=== PATIENT | male | born 1960 | race Caucasian/White ===

== ENCOUNTER → 2021-09-24 | Outpatient (CLI) | payer OTHER | END | disposition home or self-care (01) | LOC: LABWHC1 10:31 | PROVIDERS: ATTEND Urology | DX: R97.20 Elevated prostate specific antigen [PSA] (principal) | CPT/HCPCS: 36415; G0103 ==

== ENCOUNTER → 2023-07-12 | Outpatient (CLI) | payer OTHER ==
[2023-07-12 16:01] LABS: Basophils # (A) 0.05 X 10*3/uL (0.00-0.10); Basophils % (A) 0.7 %; Eosinophils # (A) 0.23 X 10*3/uL (0.04-0.35); Eosinophils % (A) 3.3 %; HCT 47.1 % (39.6-50.0); HGB 16.1 g/dL (13.0-17.0); Lymphocytes % (A) 31.5 %; MCH 30.5 pg (27.0-32.0); MCHC 34.2 g/dL (32.0-37.0); MCV 89.2 FL (80.0-97.0); Mean Platelet Volume 10.1 FL (9.5-12.2); Monocytes # (A) 0.48 X 10*3/uL (0.20-1.00); Monocytes % (A) 6.9 %; NRBC Per 100 WBC 0 X 10*3/uL (0.00-0.01); Neutrophils # (A) 4.01 X 10*3/uL (1.80-7.70); Neutrophils % (A) 57.3 %; Platelet Count 192 X 10*3/uL (140-440); RBC 5.28 X 10*6/uL (4.40-5.60); RDW 12.4 % (11.5-14.5); WBC 6.99 X 10*3/uL (4.50-10.00)
[2023-07-12 16:07] LABS: ALT 92 U/L (10-49); AST 52 U/L (14-35); Albumin 4.5 g/dL (3.8-4.9); Albumin/Globulin Ratio 1.55 Ratio (1.60-3.17); Alkaline Phosphatase 58 U/L (41-126); BUN/Creat Ratio 17.11 Ratio (12.00-20.00); Blood Urea Nitrogen 15.4 mg/dL (9.0-27.0); Calcium 9.7 mg/dL (8.7-10.3); Carbon Dioxide 25.7 mmol/L (21.6-31.8); Chloride 102 mmol/L (96-109); Chol/HDL Ratio 5.05 Ratio; Globulin 2.9 g/dL (1.6-3.3); Glucose 242 mg/dL (70-110); LDL Cholesterol,Calculated 113.4 mg/dL (0.0-131.0); Potassium 4.2 mmol/L (3.5-5.5); Sodium 139 mmol/L (135-145); Total Bilirubin 0.8 mg/dL (0.3-1.2); Total Protein 7.4 g/dL (6.2-8.2)
== END | disposition home or self-care (01) ==
LOC: LABWHC1 08:17
PROVIDERS: ATTEND Family Medicine
DX: Z12.5 Encounter for screening for malignant neoplasm of prostate (principal); I10 Essential (primary) hypertension; E11.9 Type 2 diabetes mellitus without complications
CPT/HCPCS: 36415; 80053; 80061; 84153; 84154; 85025; 86141

== ENCOUNTER → 2023-08-04 | Outpatient (CLI) | payer OTHER ==
--- NOTE | 2023-08-04 11:41 | US ---
EXAMINATION TYPE: US liver DATE OF EXAM: 08/04/2023 COMPARISON: NONE CLINICAL INDICATION: Male, 63 years old with history of R74.01 ELEVATION OF LEVELS OF LIVER TRANSAMIN ASE L; Patient has HX HTN and DM; Denies any other signs or symptoms TECHNIQUE: Multiple sonographic images of the right upper quadrant are obtained. FINDINGS: EXAM MEASUREMENTS: Liver Length: 15.2 cm Gallbladder Wall: 0.2 cm CBD: 0.4 cm Right Kidney: 11.8 x 5.7 x 5.2 cm Pancreas: Suboptimal visualization of the pancreatic tail due to shadowing from bowel gas. Visualize d portions show no gross organomegaly. Liver: Severely increased echogenicity with extensive far field attenuation Gallbladder: Not fully distended; patient properly NPO Evidence for sonographic Lindo's sign: No CBD: wnl Right Kidney: No hydronephrosis. IMPRESSION: 1. Severe hepatic steatosis. Appropriate clinical management is advised. 2. No gallstones or biliary ductal dilatation.
== END | disposition home or self-care (01) ==
LOC: RADUSWWP 07:26
PROVIDERS: ATTEND Family Medicine
DX: K76.0 Fatty (change of) liver, not elsewhere classified (principal); I10 Essential (primary) hypertension; E11.9 Type 2 diabetes mellitus without complications; R74.01 Elevation of levels of liver transaminase levels
CPT/HCPCS: 76705

== ENCOUNTER → 2023-09-19 | Outpatient (CLI) | payer OTHER ==
--- NOTE | 2023-09-19 14:33 | US ---
EXAMINATION TYPE: US prostate transrectal DATE OF EXAM: 09/19/2023 COMPARISON: NONE CLINICAL INDICATION: Male, 63 years old with history of R97.20 ELEVATED PSA; Hx elevated PSA. Patien t states having a prostate biopsy x >8 years ago and came back normal This examination was performed using the transrectal probe. EXAM MEASUREMENTS: Gland Size: 5.9 x 5.9 x 4.7 cm Volume: 84.2 mL Predicted PSA: 10.1 Actual PSA (if available):6.0 Peripheral zone appears thin. No prominent masses or lesions seen at time of scan. IMPRESSION: 1. Moderate prostatic glandular enlargement. 2. No suspicious lesions seen. Predicted PSA = volume x 0.12 ng/ml Calculated Volume = 0.5236 x L x W x H
== END | disposition home or self-care (01) ==
LOC: RADUSWWP 12:12
PROVIDERS: ATTEND Urology
DX: N40.0 Benign prostatic hyperplasia without lower urinary tract symptoms (principal); R97.20 Elevated prostate specific antigen [PSA]
CPT/HCPCS: 76872

== ENCOUNTER 2024-05-31 17:56 | Emergency (ER) | payer OTHER ==
[2024-05-31 18:03] VITALS: RESP 18; TEMP 97.5
[2024-05-31] MEDS: HYDROmorphone 1 MG/ML 1 ML SYRINGE IVP STA (18:13)
[2024-05-31] MEDS: SODIUM CHLORIDE 0.9% 1,000 ML IV STA (18:14)
[2024-05-31 18:27] LABS: Basophils # (A) 0.1 k/uL (0-0.2); Basophils % (A) 1 %; Eosinophils # (A) 0.3 k/uL (0-0.7); Eosinophils % (A) 4 %; HGB 16.9 gm/dL (13.0-17.5); Lymphocytes # (A) 3.4 k/uL (1.0-4.8); Lymphocytes % (A) 37 %; MCH 30.5 pg (25.0-35.0); MCHC 33.2 g/dL (31.0-37.0); MCV 91.9 fL (80.0-100.0); Monocytes # (A) 0.5 k/uL (0-1.0); Monocytes % (A) 5 %; Neutrophils # (A) 4.5 k/uL (1.3-7.7); Neutrophils % (A) 49 %; Platelet Count 200 k/uL (150-450); RBC 5.55 m/uL (4.30-5.90); RDW 12.5 % (11.5-15.5); WBC 9.1 k/uL (3.8-10.6)
[2024-05-31] MEDS: DIPH,PERTUS(ACELL)TETVAC-LF 0.5 ML VIAL IM ONE (18:28)
--- NOTE | 2024-05-31 18:33 | ED ---
Upper Extremity HPI - General Chief Complaint: Trauma Stated Complaint: Severed ring finger R hand Time Seen by Provider: 05/31/24 18:07 Source: patient, family, RN notes reviewed, old records reviewed Mode of arrival: ambulatory Limitations: no limitations - History of Present Illness Initial Comments: This is a 64-year-old male who showed his finger in the car door sustaining a left index finger avulsion with significant pain patient has persistent bleeding here in the ER no blood thinners MD Complaint: Injury to:: left (Index finger avulsion) Other Extremity Injury: Fingers: Left, Hand: Left Other Injuries: none Handedness: right Place: home Severity scale (1-10): 10 Improves With: none Worsens With: none Context: direct blow (Shot in car door) Associated Symptoms: denies other symptoms Treatments Prior to Arrival: bandage - Related Data Previous Rx's Medication Instructions Recorded Cephalexin [Keflex] 500 mg PO Q6HR #24 cap 05/31/24 Allergies Allergy/AdvReac Type Severity Reaction Status Date / Time bee stings Allergy Unknown Uncoded 05/31/24 17:58 Review of Systems ROS Statement: Those systems with pertinent positive or pertinent negative responses have been documented in the HPI. ROS Other: All systems not noted in ROS Statement are negative. Past Medical History Past Medical History: Diabetes Mellitus, Hypertension Past Surgical History: Orthopedic Surgery Additional Past Surgical History / Comment(s): c5-6-7 fusion, L shoulder rotator cuff, fx t12 Smoking Status: Former smoker Past Alcohol Use History: Occasional Past Drug Use History: Marijuana General Exam Limitations: no limitations General appearance: alert, in no apparent distress Head exam: Present: atraumatic, normocephalic, normal inspection Eye exam: Present: normal appearance, PERRL, EOMI. Absent: scleral icterus, conjunctival injection, periorbital swelling ENT exam: Present: normal exam, mucous membranes moist Neck exam: Present: normal inspection. Absent: tenderness, meningismus, lymphadenopathy Respiratory exam: Present: normal lung sounds bilaterally. Absent: respiratory distress, wheezes, rales, rhonchi, stridor Cardiovascular Exam: Present: regular rate, normal rhythm, normal heart sounds. Absent: systolic murmur, diastolic murmur, rubs, gallop, clicks GI/Abdominal exam: Present: soft, normal bowel sounds. Absent: distended, tenderness, guarding, rebound, rigid Extremities exam: Present: normal inspection, full ROM, normal capillary refill. Absent: tenderness, pedal edema, joint swelling, calf tenderness Back exam: Present: normal inspection Neurological exam: Present: alert, oriented X3, CN II-XII intact Psychiatric exam: Present: normal affect, normal mood Skin exam: Present: warm, dry, intact, normal color. Absent: rash Course Vital Signs 05/31/24 18:00 Temperature 97.5 F L Pulse Rate 70 Respiratory 18 Rate Blood Pressure 180/84 O2 Sat by Pulse 98 Oximetry - Reevaluation(s) Reevaluation #1: 05/31/24 18:32 Medical records reviewed Reevaluation #4: Was pt. sent in by a medical professional or institution ([facility], [employer], urgent care, hospital, or assisted...) When possible be specific @ -no Did you speak to anyone other than the patient for history (EMS, parent, family, police, friend...)? What history was obtained from this source @ -no Did you review nursing and triage notes (agree or disagree)? Why? @ -agree Are old charts reviewed (outside hosp., previous admission, EMS record, old EKG, old radiological studies, urgent care reports/EKG's, assisted records)? Report findings @ -yes Differential Diagnosis (chest pain, altered mental status, abdominal pain women, abdominal pain men, vaginal bleeding, weakness, fever, dyspnea, syncope, headache, dizziness, GI bleed, back pain, seizure, CVA, palpatations, mental health, musculoskeletal)? @ -prior EKG interpreted by me (3pts min.). @ -yes X-rays interpreted by me (1pt min.). @ -yes negative for acute disease CT interpreted by me (1pt min.). @ -no U/S interpreted by me (1pt. min.). @ -no What testing was considered but not performed or refused? (CT, X-rays, U/S, labs)? Why? @ -none What meds were considered but not given or refused? Why? @ -none Did you discuss the management of the patient with other professionals (professionals i.e. [facility], [employer], lab, RT, psych nurse, director of social media marketing, beveler, teacher, cavalry officer, counter caser)? Give summary @ -no Was smoking cessation discussed for >3mins.? @ -no Was critical care preformed (if so, how long)? @ -no Were there social determinants of health that impacted care today? How? (Ho melessness, low income, unemployed, alcoholism, drug addiction, transportation, low edu. Level, literacy, decrease access to med. care, nursing home, rehab)? @ -none Was there de-escalation of care discussed even if they declined (Discuss DNR or withdrawal of care, Hospice)? DNR status @ -no What co-morbidities impacted this encounter? (DM, HTN, Smoking, COPD, CAD, Cancer, CVA, ARF, Chemo, Hep., AIDS, mental health diagnosis, sleep apnea, morbid obesity)? @ -none Was patient admitted / discharged? Hospital course, mention meds given and route, prescriptions, significant lab abnormalities, going to OR and other pertinent info. @ - Undiagnosed new problem with uncertain prognosis? @ -no Drug Therapy requiring intensive monitoring for toxicity (Heparin, Nitro, Insulin, Cardizem)? @ -no Were any procedures done? @ -no Diagnosis/symptom? @ - Acute, or Chronic, or Acute on Chronic? @ -Acute Uncomplicated (without systemic symptoms) or Complicated (systemic symptoms)? @ -Complicated Side effects of treatment? @ -no Exacerbation, Progression, or Severe Exacerbation? @ -exacerbation Poses a threat to life or bodily function? How? (Chest pain, [place], [place], pneumonia, PE, COPD, DKA, ARF, appy, cholecystitis, CVA, Diverticulitis, Homicidal, Suicidal, threat to staff... and all critical care pts) @ -yes Medical Decision Making - Medical Decision Making 64 male with right index fingertip avulsion, bandage clean here in the ER placed on antibiotics and patient can be discharged home - Lab Data Result diagrams: 05/31/24 18:16 05/31/24 18:16 Lab Results 05/31/24 05/31/24 05/31/24 Range/Units 18:16 18:16 18:16 WBC 9.1 (3.8-10.6) k/uL RBC 5.55 (4.30-5.90) m/uL Hgb 16.9 (13.0-17.5) gm/dL Hct 51.0 (39.0-53.0) % MCV 91.9 (80.0-100.0) fL MCH 30.5 (25.0-35.0) pg MCHC 33.2 (31.0-37.0) g/dL RDW 12.5 (11.5-15.5) % Plt Count 200 (150-450) k/uL MPV 7.0 Neutrophils % 49 % Lymphocytes % 37 % Monocytes % 5 % Eosinophils % 4 % Basophils % 1 % Neutrophils # 4.5 (1.3-7.7) k/uL Lymphocytes # 3.4 (1.0-4.8) k/uL Monocytes # 0.5 (0-1.0) k/uL Eosinophils # 0.3 (0-0.7) k/uL Basophils # 0.1 (0-0.2) k/uL PT 10.7 (10.0-12.5) sec INR 1.0 (<1.2) APTT 23.3 (22.0-30.0) sec Sodium 138 (137-145) mmol/L Potassium 4.0 (3.5-5.1) mmol/L Chloride 108 H (98-107) mmol/L Carbon Dioxide 20 L (22-30) mmol/L Anion Gap 10 mmol/L BUN 16 (9-20) mg/dL Creatinine 0.85 (0.66-1.25) mg/dL Est GFR (CKD-EPI)AfAm >90 (>60 ml/min/1.73 sqM) Est GFR (CKD-EPI)NonAf >90 (>60 ml/min/1.73 sqM) Glucose 139 H (74-99) mg/dL Plasma Lactic Acid Quincy (0.7-2.0) mmol/L Calcium 9.4 (8.4-10.2) mg/dL Phosphorus 3.5 (2.5-4.5) mg/dL Magnesium 1.8 (1.6-2.3) mg/dL Total Bilirubin 1.0 (0.2-1.3) mg/dL AST 41 (17-59) U/L ALT 32 (4-49) U/L Alkaline Phosphatase 53 (38-126) U/L Troponin I (0.000-0.034) ng/mL Total Protein 8.1 (6.3-8.2) g/dL Albumin 4.9 (3.5-5.0) g/dL Serum Alcohol <10 mg/dL 05/31/24 05/31/24 Range/Units 18:16 18:16 WBC (3.8-10.6) k/uL RBC (4.30-5.90) m/uL Hgb (13.0-17.5) gm/dL Hct (39.0-53.0) % MCV (80.0-100.0) fL MCH (25.0-35.0) pg MCHC (31.0-37.0) g/dL RDW (11.5-15.5) % Plt Count (150-450) k/uL MPV Neutrophils % % Lymphocytes % % Monocytes % % Eosinophils % % Basophils % % Neutrophils # (1.3-7.7) k/uL Lymphocytes # (1.0-4.8) k/uL Monocytes # (0-1.0) k/uL Eosinophils # (0-0.7) k/uL Basophils # (0-0.2) k/uL PT (10.0-12.5) sec INR (<1.2) APTT (22.0-30.0) sec Sodium (137-145) mmol/L Potassium (3.5-5.1) mmol/L Chloride (98-107) mmol/L Carbon Dioxide (22-30) mmol/L Anion Gap mmol/L BUN (9-20) mg/dL Creatinine (0.66-1.25) mg/dL Est GFR (CKD-EPI)AfAm (>60 ml/min/1.73 sqM) Est GFR (CKD-EPI)NonAf (>60 ml/min/1.73 sqM) Glucose (74-99) mg/dL Plasma Lactic Acid Quincy 1.9 (0.7-2.0) mmol/L Calcium (8.4-10.2) mg/dL Phosphorus (2.5-4.5) mg/dL Magnesium (1.6-2.3) mg/dL Total Bilirubin (0.2-1.3) mg/dL AST (17-59) U/L ALT (4-49) U/L Alkaline Phosphatase (38-126) U/L Troponin I <0.012 (0.000-0.034) ng/mL Total Protein (6.3-8.2) g/dL Albumin (3.5-5.0) g/dL Serum Alcohol mg/dL - EKG Data -: EKG Interpreted by Me (EKG is sinus 68 MN 204 QRS 95 QTc 416) - Radiology Data Radiology results: report reviewed (X-ray right hand does show distal fingertip avulsion index finger), image reviewed Disposition Clinical Impression: Avulsion of fingertip, Amputation of index finger, Amputation of right index finger Disposition: ADMITTED IP TO THIS [facility] Condition: Fair Instructions (If sedation given, give patient instructions): Avulsion Fracture (ED), Nail Avulsion (ED), Skin Avulsion (ED) Prescriptions: Cephalexin [Keflex] 500 mg PO Q6HR #24 cap Is patient prescribed a controlled substance at d/c from ED?: No Referrals: Claire Fletcher PAC [Primary Care Provider] - 1-2 days Carmelo Soriano MD [STAFF PHYSICIAN] - 1-2 days Time of Disposition: 19:30
[2024-05-31 18:38] LABS: Partial Thromboplastin Time 23.3 sec (22.0-30.0); Prothrombin Time 10.7 sec (10.0-12.5)
[2024-05-31 18:39] LABS: ALT 32 U/L (4-49); AST 41 U/L (17-59); African American GFR (CKD) >90 (>60 ml/min/1.73 sqM); Albumin 4.9 g/dL (3.5-5.0); Alcohol <10 mg/dL; Alkaline Phosphatase 53 U/L (38-126); Anion Gap 10 mmol/L; Blood Urea Nitrogen 16 mg/dL (9-20); Calcium 9.4 mg/dL (8.4-10.2); Carbon Dioxide 20 mmol/L (22-30); Chloride 108 mmol/L (98-107); Glucose 139 mg/dL (74-99); Magnesium 1.8 mg/dL (1.6-2.3); Non-African American GFR(CKD) >90 (>60 ml/min/1.73 sqM); Phosphorus 3.5 mg/dL (2.5-4.5); Sodium 138 mmol/L (137-145); Total Protein 8.1 g/dL (6.3-8.2)
--- NOTE | 2024-05-31 19:10 | XR ---
EXAMINATION TYPE: XR hand limited RT DATE OF EXAM: 05/31/2024 6:50 PM CLINICAL INDICATION: Male, 64 years old with history of pain; COMPARISON: None TECHNIQUE: XR hand limited RT Frontal, lateral and oblique views were obtained. FINDINGS/IMPRESSION: Amputation of the fourth digit distal phalanx with soft tissue injury also present. No radiopaque for eign bodies. [facility], , 05/31/2024 7:08 PM
[2024-05-31 19:39] VITALS: BP 152/99; PULSE 62
[2024-05-31] MEDS: IBUPROFEN 600 MG STARTER PACK 4 TAB BTL PO STA (19:46)
[2024-05-31] MEDS: CEPHALEXIN 500MG STARTER PACK 4 CAP BTL PO STA (19:46)
[2024-05-31] MEDS: ACET/COD 300 MG/30 MG STARTER PACK 6 TAB BTL PO STA (19:49)
[2024-05-31] MEDS: traMADol 50 MG STARTER PACK 3 TAB BTL PO STA (19:50)
== END 2024-05-31 20:01 | disposition other institution (70) ==
LOC: EC 17:56
CPT/HCPCS: 36415; 80053; 80320; 83605; 83735; 84100; 84484; 85025; 85610; 85730; 90471; 90715; 93005; 96365; 96375; 99284

== ENCOUNTER → 2024-12-31 | Outpatient (CLI) | payer OTHER ==
--- NOTE | 2024-12-31 16:02 | CTL ---
EXAMINATION TYPE: CT Low Dose Lung DATE OF EXAM: 12/31/2024 9:54 AM COMPARISON: None. CLINICAL INDICATION: Male, 64 years old with history of ENCNTR SCREEN FOR MALIGNANT NEOPLASM OF RESPI RATORY ORGANS, Former smoker, quit x6yrs. Hx of 1PPD x20yrs., History of tobacco use. TECHNIQUE: Low dose computed tomography scan was performed through the chest at 1 mm thick sections a nd reconstructed images in multiple planes at 1 mm and [address] DLP: 139.4 mGycm, CT CTDI: 3.5 mGy, Automated exposure control for dose reduction was used. CT DIAGNOSTIC QUALITY: Satisfactory FINDINGS: Heart normal size without pericardial effusion. No significant coronary calcifications. Mild aneurysm ascending aorta 4.0 cm. Conventional arch vessel branching anatomy. No thoracic lymphadenopathy by CT size criteria. The minimal strandy atelectasis or scarring in the lower lungs. There may be some very minimal emphys ematous change. No consolidation or pleural effusion. 4 mm left upper lobe pulmonary nodule, axial image 110. No suspicious pulmonary nodules seen. Tiny hiatal hernia. Diffuse low attenuation of the hepatic parenchyma compatible with fatty infiltrat ion. Bones: [facility] mid and lower thoracic spine. Chronic anterior wedging T12. Partially visualized ACDF james dware. IMPRESSION: 1. LungRADS 2, benign. A solitary 4 mm pulmonary nodule on baseline screening. 2. There may be minimal emphysematous change. 3. Mild aneurysm ascending aorta at 4.0 cm. 4. Tiny hiatal hernia. Moderate to severe hepatic steatosis; appropriate clinical management is advis ed. CT LUNG RAD AND CT CHEST RECOMMENDATION: Lung-Rad 2 Benign Appearance or Behavior: Continue annual sc reening with LDCT in 12 months. S Modifier (other clinically significant findings): S, appropriate clinical management of patient's u nderlying fatty liver disease. [facility], , 12/31/2024 4:00 PM
== END | disposition home or self-care (01) ==
LOC: RADCTMAIN 09:33
PROVIDERS: ATTEND Family Medicine
DX: Z12.2 Encounter for screening for malignant neoplasm of respiratory organs (principal); R91.1 Solitary pulmonary nodule; K44.9 Diaphragmatic hernia without obstruction or gangrene; K76.0 Fatty (change of) liver, not elsewhere classified; J43.9 Emphysema, unspecified; I71.21 Aneurysm of the ascending aorta, without rupture; Z87.891 Personal history of nicotine dependence
CPT/HCPCS: 71271